=== PATIENT | male | born 1985 | race African-American/Black ===

== ENCOUNTER 2017-09-13 13:25 | Emergency (ER) | payer SELFPAY ==
[~2017-09-13] VITALS: Ht 172.7 cm; Wt 74.0 kg
[2017-09-13] MEDS ORDERED: IBUPROFEN 800MG TABLET PO ONE (15:30)
[2017-09-13 16:50] VITALS: BP 115/71
== END 2017-09-13 17:30 | disposition home or self-care (01) ==
LOC: ER 15:12
DX: S66.911A Strain of unspecified muscle, fascia and tendon at wrist and hand level, right hand, initial encounter (principal); F12.10 Cannabis abuse, uncomplicated; F17.200 Nicotine dependence, unspecified, uncomplicated; Y04.0XXA Assault by unarmed brawl or fight, initial encounter; Y93.89 Activity, other specified; Y92.89 Other specified places as the place of occurrence of the external cause; Y99.8 Other external cause status
CPT/HCPCS: 73130; 99284; Z7610